=== PATIENT | female | born 1955 | race Caucasian/White ===

== ENCOUNTER → 2017-05-04 | Outpatient (CLI) | payer OTHER ==
[~2017-05-04] MED LIST: NO MEDICATIONS
--- NOTE | ~2017-05-04 | MY26 ---
[facility] A Service of [facility] RADIOLOGY TEXT RESULTS PATIENT: MICHELLE DAWN LOCATION: [facility] : 55 UNIT #: [id number] AGE: [address]: VISHNU JUAREZ APRN SEX: F ORDER DR: [id number] [facility]. [place], [place] [address] [id number] O MR#: [id number] Acc #: [id number] NAME: MICHELLE DAWN : 1955 SEX: F STUDY DATE/TIME: 05/04/2017 13:05 UNIT: [facility] ROOM: STUDY DESCRIPTION: [facility] W/ CAD BILAT Attending Physician: Vishnu Juarez Aprn Referring Physician: Vishnu Juarez Aprn Ordering Physician: Physician Non-Staff Primary Care Physician: Vishnu Juarez Aprn MEDICAL IMAGING REPORT This report is preliminary unless electronic signature is present EXAM Bilateral digital diagnostic mammogram with CAD. Date: 05/04 1017 HISTORY Follow up microcalcifications within the right breast. COMPARISON Right breast digital diagnostic mammogram 11/08/2016, 05/03/2016. Bilateral screening mammogram 04/16/2016 and 08/25/2007. FINDINGS CC and MLO views were obtained of each breast. Additional true ML and extended craniocaudal lateral views were obtained of the right breast. This study was performed utilizing digital technique and reviewed with an FDA-approved CAD device. Additional high-resolution spot magnification images were obtained of the right breast. Scattered fibroglandular densities are present bilaterally. No new or suspicious nodule or architectural distortion is seen. An approximately 9 mm grouping of calcifications is seen in the upper outer right breast posterior third. It is best visualized on the extended craniocaudal lateral spot magnification image. The calcifications appear mostly coarse and benign, although a few smudgy or ill-defined caliber like calcifications particularly at the lateral margin. However, this grouping of calcifications appears stable since the 05/03/2016 and 11/08/2016 examinations. The findings are new when compared to the screening mammogram from 2006. The calcifications are not associated with a mass lesion or architectural distortion. [facility] A Service of [facility] RADIOLOGY TEXT RESULTS PATIENT: MICHELLE DAWN LOCATION: [facility] : 55 UNIT #: [id number] AGE: [address]: VISHNU JUAREZ APRN SEX: F ORDER DR: IMPRESSION 1. BIRADS category 3. Probable benign finding. The grouping of calcifications in the posterior upper outer right breast appears stable since 05/03/2016. Continued 6-month right breast diagnostic mammogram. Followup, to include spot magnification images, is recommended. Continued mammographic followup for 2 years (through the April 2018) would be recommended. The left breast is benign. 2. The findings and recommendations were discussed with the patient today in the radiology department. 3. BIRADS category 3. Prior benign finding. A 6-month followup recommended. Patients over the age of 40 are entered into a reminder system with target due date for the next mammogram. A result letter will also be sent to the patient. BIRADS: 3 Probably benign finding; short interval followup suggested. Dictated by... Dixie Durbin M.D. THIS IS AN ELECTRONICALLY VERIFIED REPORT Dixie Durbin M.D. at 05/06/2017 9:33 PM Hilary TD: 05/04/2017 14:43 JOB #: [id number] MEDICAL IMAGING REPORT Page 1 of 1 COPY
== END | disposition home or self-care (01) ==
LOC: CMAM 12:27
DX: R92.8 Other abnormal and inconclusive findings on diagnostic imaging of breast (principal); R92.1 Mammographic calcification found on diagnostic imaging of breast
CPT/HCPCS: G0204